=== PATIENT | female | born 1960 | race Caucasian/White ===

== ENCOUNTER 2017-09-17 13:19 | Inpatient (IN) | payer OTHER ==
[~2017-09-17] VITALS: Ht 160 cm; Wt 64.0 kg
--- NOTE | ~2017-09-17 | ST ---
[place], [place] EXERCISE STRESS TEST REPORT NAME: [facility]: [id number] UNIT #: [id number] ROOM: 505 DOCTOR: ARMIDA HINDS MD BIRTHDATE: [birth year] DOS: 09/18/2017 REFERRING PHYSICIAN: Dr. Matthew. INDICATION: Chest pain. The patient underwent standard Pineda protocol exercise treadmill stress test. The patient's baseline EKG showed normal sinus bradycardia with heart rate of 59 with a blood pressure of 134/64. The patient exercised for 7 minutes with a peak heart rate of 156 with peak blood pressure of 154/72. The patient achieved 95% of maximum predicted heart rate. The patient had no chest pain, no ischemic changes, no arrhythmias. SUMMARY OF FINDINGS: 1. Unremarkable Lexiscan stress EKG. ____. 2. Pérez Treadmill score is 7 portending a low-risk prognosis. ARMIDA HINDS MD CM:STRESS:EXERCISE STRESS TEST REPORT [id number] ARMIDA HINDS MD
[2017-09-17 13:22] VITALS: BP 140/70
[2017-09-17 13:37] LABS: BASO % 0.5 % (0.0-1.0); EOS % 0.7 % (1.0-4.0); HEMATOCRIT 40.2 % (37.0-47.0); HEMOGLOBIN 13.4 g/dl (12.0-16.0); LYMPH # 1.2 10*3/uL (1.3-4.4); MEAN CELL VOLUME 93.1 fl (81.0-99.0); MEAN CORPUSCULAR HGB CONC 33.3 g/dl (33.0-37.0); MEAN PLATELET VOLUME 10.4 fl (9.6-12.3); MONO # 0.3 10*3/uL (0.1-1.0); MONO % 4.8 % (3.0-9.0); NEUT # 4.5 10*3/uL (2.3-7.9); NEUT % 74.3 % (47.0-73.0); PLATELET COUNT AUTOMATED 192 10*3/uL (130-400); RED BLOOD COUNT 4.32 10*6/uL (4.10-5.10); RED CELL DISTRI WIDTH 12.7 % (0-14.5); WHITE BLOOD COUNT 6.1 10*3/uL (4.8-10.8)
[2017-09-17 13:46] LABS: ACT PARTIAL THROMBO TIME 26.1 SECONDS (20.8-31.5)
[2017-09-17 13:54] VITALS: BP 143/69
[2017-09-17 13:54] LABS: ALBUMIN 3.9 gm/dl (3.1-4.5); ALKALINE PHOSPHATASE 80 U/L (45-117); BUN 11 mg/dl (7-24); CHLORIDE 104 mmol/L (98-107); CREATININE 0.91 mg/dL (0.55-1.02); POTASSIUM 3.4 mmol/L (3.5-5.1); SGOT/AST 24 IU/L (3-35); SGPT/ALT 22 U/L (12-78); SODIUM 142 mmol/L (136-145); TOTAL PROTEIN 7.9 gm/dL (6.4-8.2)
[2017-09-17 13:57] LABS: TROPONIN I < 0.015 ng/ml (<0.045)
[2017-09-17 14:55] VITALS: BP 122/67
--- NOTE | 2017-09-17 14:55 | NUR ---
A 57, admitted to 5E, under the services of LETY Liang DO with a diagnosis of CHEST PAIN . Chief complaint is CHEST PAIN . Patient arrived via stretcher from ER. Monitor applied. Initial assessment completed. Vital signs taken and recorded. LETY LIANG DO notified of admission to the unit. Orders received. See assessment for past medical history, medications and allergies. Patient and/or family oriented to unit. visitation policy reviewed. Clothing/patient valuable form completed. ANGI MARTE
[2017-09-17 16:00] VITALS: BP 124/69
--- NOTE | 2017-09-17 17:26 | NUR ---
DR WALSH CALLED , STATES THAT HE ALREADY SPOKE WITH CARDIOLOGY REGARDING CONSULT
--- NOTE | 2017-09-17 17:28 | NUR ---
PT STATES THAT GI COCKTAIL HELPED HER CHEST PAIN. DR BLISS NOTIFIED
--- NOTE | 2017-09-17 17:28 | NUR ---
DR BLISS CALLED, STATES THAT HE ALREADY SPOKE WITH CARDIOLOGY REGARDING CONSULT
[2017-09-17 20:00] VITALS: BP 112/59
--- NOTE | 2017-09-17 20:06 | NUR ---
PATIENT AWAKE IN BED AT THIS TIME. DENIES SOB, BUT STILL COMPLAINING OF SOME MIDSTERNAL "DISCOMFORT" WHICH SHE RATES 2/10. PATIENT DESCRIBES THIS DISCOMFORT AN ACHE. PATIENT UPDATED ON PLAN OF CARE AND EDUCATED ABOUT NPO STATUS AFTER MIDNIGHT. PT VERBALIZES UNDERSTANDING. WILL MONITOR PATIENT. CALL LIGHT LEFT IN REACH.
[2017-09-18] VITALS: BP 99/59
--- NOTE | 2017-09-18 03:54 | NUR ---
PATIENT ASLEEP IN BED. RESPIRATIONS EASY, NO S/S OF DISTRESS NOTED. CALL LIGHT IN REACH. WILL MONITOR.
[2017-09-18 07:01] LABS: BASO % 0.7 % (0.0-1.0); EOS # 0.1 10*3/uL (0.0-0.4); HEMATOCRIT 41.1 % (37.0-47.0); HEMOGLOBIN 13.9 g/dl (12.0-16.0); LYMPH # 1.9 10*3/uL (1.3-4.4); LYMPH % 30.4 % (27.0-41.0); MEAN CELL VOLUME 92.8 fl (81.0-99.0); MEAN CORPUSCULAR HGB 31.4 pg (27.0-31.0); MEAN CORPUSCULAR HGB CONC 33.8 g/dl (33.0-37.0); MEAN PLATELET VOLUME 10.9 fl (9.6-12.3); MONO # 0.4 10*3/uL (0.1-1.0); MONO % 7.1 % (3.0-9.0); NEUT # 3.7 10*3/uL (2.3-7.9); NEUT % 60.5 % (47.0-73.0); PLATELET COUNT AUTOMATED 204 10*3/uL (130-400); RED BLOOD COUNT 4.43 10*6/uL (4.10-5.10); WHITE BLOOD COUNT 6.1 10*3/uL (4.8-10.8)
[2017-09-18 07:30] LABS: BUN 14 mg/dl (7-24); CHLORIDE 106 mmol/L (98-107); CHOLESTEROL 206 mg/dL (<200); CREATININE 0.88 mg/dL (0.55-1.02); PHOSPHOROUS 3.3 mg/dL (2.5-4.9); POTASSIUM 3.9 mmol/L (3.5-5.1); SODIUM 140 mmol/L (136-145); TRIGLYCERIDES 93 mg/dl (<150); VLDL CHOLESTEROL 19 mg/dL (6-40)
[2017-09-18 07:35] LABS: VITAMIN D, 25-HYDROXY 28.2 ng/mL (30-100)
[2017-09-18 07:37] LABS: FREE T4 1.02 ng/dl (0.76-1.46); HDL CHOLESTEROL 71 mg/dl (40-60); LDL CHOLESTEROL 116 mg/dL (9-159)
[2017-09-18 07:51] VITALS: BP 124/80
[2017-09-18 08:00] VITALS: BP 105/60
--- NOTE | 2017-09-18 08:31 | NUR ---
ALERT AND ORIENTED X3. LYING IN BED WAITING TO GO FOR STRESS TEST. NO COMPLAINTS OF PAIN/DISCOMFORT AT THIS TIME. ROSIO. SKIN PINK, WARM AND DRY. HEART SOUNDS NORMAL. LUNG SOUNDS CLEAR. IV SITE TO RA-CLEAN DRY AND INTACT.BLOOD PRESENT-FLUSHED WITH NS. ABDOMEN NON TENDER, NON DISTENDED. ABHILASH OWENS [facility]
--- NOTE | 2017-09-18 09:00 | NUR ---
[employer] in to talk to patient. Patient states lives at home with family. There are few steps in the home. Physician: fransisco [facility]acy: [facility] Home health services: none Patient's level of ADLs: INDEPENDENT Patient has working utilities: all working DME: none Follow-up physician's appointment after d/c: will be made by hospitalist nurse director upon discharge Does patient want to access PORTAL?: no Discharge plan discussed with patient, patient lives at home with family, is independent in adls and ambulation, works, drives, patient denies any home needs. OLEG HULL
--- NOTE | 2017-09-18 10:58 | NUR ---
PATIENT TO STRESS TEST VIA WHEELCHAIR. STABLE. [facility]
--- NOTE | 2017-09-18 11:00 | NUR ---
INFORMED CONSENT OBTAINED FOR EXERCISE NUCLEAR STRESS TEST WITH DR. HINDS. RESTING EKG NSR WITH A SUPINE HR OF 59 WITH BP OF 134/64 AND HR OF 68 WITH BP OF 110/68. PT COMPLETED 7:00 OF A ANURAG PROTOCOL WITH COMPLETION OF 1:00 OF STAGE III AT 3.4 MPH AND 14% GRADE. REACHED A PEAK HR OF 156 WHICH IS 95% OF PREDICTED MAX WITH A PEAK BP OF 154/72. HAD NO CHEST PAIN OR ANY EKG CHANGES. TEST TERMINATED BECAUSE OF FATIGUE. HAS AN AVERAGE EXERCISE TOLERANCE. LAST RECOVERY HR 98 WITH BP OF 144/80. AWAITING SCANNING IN STABLE CONDITION.
[2017-09-18 12:00] VITALS: BP 103/58
--- NOTE | 2017-09-18 12:00 | NUR ---
PATIENT BACK FROM STRESS TEST. STABLE. [facility]
--- NOTE | 2017-09-18 12:25 | NUR ---
PATIENT COMPLAINT OF GENERALIZED HEADACHE RATING 5 ON PAIN SCALE 1-10. TYLENOL 650MG PO GIVEN. WILL CONTINUE TO ASSESS. [facility]
[2017-09-18 12:39] VITALS: BP 120/76
--- NOTE | 2017-09-18 13:28 | NUR ---
REASSESSED FOR HEADACHE, PATIENT STATES " TYLENOL WORKED GREAT, MY HEADACHE IS GONE". ON PAIN SCALE 1-10 PATIENT RATES A 0. [facility].
[2017-09-18 16:00] VITALS: BP 99/53
[2017-09-18] MEDS ORDERED: VITAMIN D31000 UNI1 PO (16:17)
[2017-09-18] MEDS ORDERED: OMEPRAZOLE40 MG PO (16:36)
--- NOTE | 2017-09-18 17:06 | NUR ---
Discharge instructions reviewed with patient/family. Patient receptive and verbalizes understanding. Follow-up care arranged. Written instructions given to patient/family. HEPLOCK DISCONTINUED. PATIENT AMBULATORY OFF FLOOR WITH FAMILY MEMBER. MICKEY EASLEY
== END 2017-09-18 17:06 | disposition home or self-care (01) | DRG 206 ==
LOC: ED 13:19 → EDHOLD 14:02 → 5E 14:02
PROVIDERS: Emergency Medicine; Student in an Organized Health Care Education/Training Program; ADMIT Internal Medicine
PROC: 4A02XM4 Measurement of Cardiac Total Activity, External Approach (ICD-10-PCS; principal; 2017-09-18)
DX: M94.0 Chondrocostal junction syndrome [Tietze] (principal); D72.810 Lymphocytopenia; E87.6 Hypokalemia; R03.0 Elevated blood-pressure reading, without diagnosis of hypertension; E55.9 Vitamin D deficiency, unspecified; K21.9 Gastro-esophageal reflux disease without esophagitis; R09.1 Pleurisy; Z87.891 Personal history of nicotine dependence; Z80.0 Family history of malignant neoplasm of digestive organs